=== PATIENT | female | born 1980 | race African-American/Black ===

== ENCOUNTER 2018-06-22 20:54 | Emergency (ER) | payer MEDICARE, MEDICAID ==
[~2018-06-22] VITALS: Ht 165.1 cm; Wt 59.0 kg
[2018-06-22 20:59] VITALS: BP 137/58
== END 2018-06-23 00:30 | disposition left against medical advice (07) ==
LOC: ER 22:01
DX: M25.512 Pain in left shoulder (principal); R07.89 Other chest pain; Z53.21 Procedure and treatment not carried out due to patient leaving prior to being seen by health care provider